=== PATIENT | male | born 1940 | race Caucasian/White ===

== ENCOUNTER 2020-02-06 16:18 | Emergency (ER) | payer MEDICARE, BC ==
[~2020-02-06] VITALS: Ht 170.2 cm; Wt 108.4 kg
[2020-02-06] MEDS ORDERED: LOSA50TA39 PO (17:16)
[2020-02-06] MEDS ORDERED: TERA5CAP4 PO (17:16)
[2020-02-06] MEDS ORDERED: IV NORMAL SALINE 250 ML IV ONE (17:16)
[2020-02-06] MEDS ORDERED: AMIO200T4 PO (17:16)
[2020-02-06] MEDS ORDERED: IOHEXOL 350 100 ML INFUS..BTL ONE (17:16)
[2020-02-06] MEDS ORDERED: ASPI-605 PO (17:16)
[2020-02-06] MEDS ORDERED: PANT40TA4 PO (17:16)
[2020-02-06] MEDS ORDERED: LACOSAMIDE PO (17:16)
[2020-02-06] MEDS ORDERED: SWABABLE VALVE TRANSFER SET EA MC ONE (17:16)
[2020-02-06] MEDS ORDERED: HYDR12.55 PO (17:16)
[2020-02-06] MEDS ORDERED: AMLO2.5T4 PO (17:16)
[2020-02-06 17:29] LABS: BASOPHILS % (AUTO) 0.4 % (0.0-2.0); EOSINOPHILS # (AUTO) 0.1 K/uL (0.0-0.7); EOSINOPHILS % (AUTO) 1.3 % (0.0-7.0); HEMATOCRIT 38.2 % (36.7-47.1); HEMOGLOBIN 12.6 g/dL (12.5-16.3); LYMPHOCYTES # (AUTO) 0.7 K/uL (20.0-40.0); LYMPHOCYTES % (AUTO) 10.7 % (20.5-51.5); MEAN CORPUSCULAR HEMOGLOBIN 27.6 uug (23.8-33.4); MEAN CORPUSCULAR HGB CONC 33 g/dL (32.5-36.3); MEAN CORPUSCULAR VOLUME 83.7 fL (73.0-96.2); MONOCYTES # (AUTO) 0.5 K/uL (2.0-10.0); MONOCYTES % (AUTO) 7.9 % (0.0-11.0); NEUTROPHILS # (AUTO) 4.9 K/uL (1.8-8.9); NEUTROPHILS % (AUTO) 79.7 % (38.5-71.5); PLATELET COUNT (AUTO) 269 K/uL (152-348); RED BLOOD CELL COUNT(AUTO) 4.57 MIL/uL (4.06-5.63); WHITE BLOOD COUNT (AUTO) 6.1 K/uL (3.6-10.2)
[2020-02-06 17:35] LABS: CREATININE 1.3 mg/dL (0.6-1.3); POTASSIUM 3.8 mmol/L (3.5-5.1)
[2020-02-06 17:41] LABS: BILIRUBIN,DIRECT 0.3 mg/dL (0.0-0.2); BILIRUBIN,TOTAL 0.6 mg/dL (0.2-1.0)
--- NOTE | 2020-02-06 18:35 | NUR ---
pt back from CT RA NAD asleep and comfortable
[2020-02-06 20:26] VITALS: BP 140/72
== END 2020-02-06 19:53 | disposition home or self-care (01) ==
LOC: ER 16:21
DX: K65.4 Sclerosing mesenteritis (principal); Z96.642 Presence of left artificial hip joint; R59.9 Enlarged lymph nodes, unspecified; R50.9 Fever, unspecified; K76.0 Fatty (change of) liver, not elsewhere classified; K80.20 Calculus of gallbladder without cholecystitis without obstruction; J98.11 Atelectasis; G31.9 Degenerative disease of nervous system, unspecified; R74.0 Nonspecific elevation of levels of transaminase and lactic acid dehydrogenase [LDH]; Z79.82 Long term (current) use of aspirin; R05 Cough
CPT/HCPCS: 36415; 70450; 71275; 74176; 80048; 80076; 83690; 84484; 85025; 85730; 93005; 99285; Q9967; 70030-TC; A4663; J7050